=== PATIENT | female | born 1955 ===

== ENCOUNTER 2016-08-23 10:05 | Day surgery (SDC) | payer OTHER ==
[2016-08-23 10:33] VITALS: BMI 28.3
[2016-08-23] MEDS ORDERED: Lactated Ringer's 500 ML IV ONE (10:46)
--- NOTE | 2016-08-23 10:52 | CP.SDSHP ---
Same Day Surgery H & P - History Proposed Procedure: EGD/colonoscopy Pre-Op Diagnosis: dyspepsia. screening for colon cancer - Previous Medical/Surgical History Comments: hyperparathyroidism - Allergies Allergies: Allergies No Known Allergies Allergy (Verified 10/31/15 12:14) - Current Medications Current Medications: see med list - Physical Exam General Appearance: NAD Vital Signs: Vital Signs 08/23/16 10:34 Temperature 98.5 F Pulse Rate 62 Respiratory 19 Rate Blood Pressure 123/82 O2 Sat by Pulse 97 Oximetry Mental Status: Alert & Oriented x3 Heart: WNL Lungs: WNL GI: WNL - {Optional Preform as Required} Abdomen: WNL - Impression Impression: 61 year old female with h/o hyperparathyroidism here for evaluation of dyspepsia and screening for colon cancer Pt. Evaluated Today:Candidate for Anesthesia & Procedure: Yes - Date & Time Date: 08/23/16 Time: 10:51 Short Stay Discharge - Short Stay Discharge Admitting Diagnosis/Reason for Visit: DYSPEPSIA / SCREENING FOR MAL BESS COLON Disposition: HOME/ ROUTINE
[2016-08-23] MEDS ORDERED: Propofol 10 mg/ml Inj (20 ML) ONE (10:58)
[2016-08-23 11:52] VITALS: TEMP 97.5
[2016-08-23 11:57] VITALS: PULSE 58
[2016-08-23 12:11] VITALS: O2SAT 100
[2016-08-23 12:23] VITALS: BP 116/70; RESP 16
== END 2016-08-23 12:50 | disposition home or self-care (01) ==
LOC: C.ENDO 10:05
PROVIDERS: ATTEND Internal Medicine Gastroenterology
DX: K29.50 Unspecified chronic gastritis without bleeding (principal); K29.80 Duodenitis without bleeding; K44.9 Diaphragmatic hernia without obstruction or gangrene; B96.81 Helicobacter pylori [H. pylori] as the cause of diseases classified elsewhere; Z12.11 Encounter for screening for malignant neoplasm of colon; K57.30 Diverticulosis of large intestine without perforation or abscess without bleeding; D12.2 Benign neoplasm of ascending colon; K64.8 Other hemorrhoids
CPT/HCPCS: 43239; 45385; 88305; J2704; J7120

== ENCOUNTER 2017-04-12 21:43 | Emergency (ER) | payer OTHER ==
[2017-04-12 22:07] VITALS: RESP 20; TEMP 98.9
[2017-04-12] MEDS ORDERED: DiphenhydrAMINE 50 mg/ml Inj IVP STA (22:47)
[2017-04-12] MEDS ORDERED: DiphenhydrAMINE 50 mg/ml Inj ONE (23:05)
--- NOTE | 2017-04-12 23:10 | C.PDOC ---
History Of Present Illness 61 year old female presents to the ED for evaluation of an itchy rash which began 3 days ago. Patient states she recently began treatment for H. Pylori and her medications include Flagyl, Omeprazole, and Tetracycline. Patient also states she recently ate salmon, which she does not do often. She denies throat- swelling sensation, chest pain, shortness of breath, nausea, vomiting at this time. Time Seen by Provider: 04/12/17 22:21 Chief Complaint (Nursing): Allergic Reaction History Per: Patient History/Exam Limitations: no limitations Onset/Duration Of Symptoms: Days (3) Current Symptoms Are (Timing): Still Present Context: Food Possible Cause: Medication, Food Associated Symptoms: Skin Rash, Itching. denies: Dyspnea, Chest Pain Home/EMS Treatment: None Additional History Per: Patient Past Medical History Reviewed: Historical Data, Nursing Documentation, Vital Signs Vital Signs: Last Vital Signs Temp 98.9 F 04/12/17 22:03 Pulse 68 04/13/17 00:00 Resp 20 04/13/17 00:00 BP 141/76 04/13/17 00:00 Pulse Ox 97 04/13/17 00:00 - Medical History PMH: Gastritis Denies: Chronic Kidney Disease Surgical History: No Surg Hx Family History: States: Unknown Family Hx - Social History Hx Alcohol Use: No Hx Substance Use: No Review Of Systems ENT: Negative for: Throat Swelling Respiratory: Negative for: Shortness of Breath Gastrointestinal: Negative for: Nausea, Vomiting Skin: Positive for: Rash Physical Exam - Physical Exam Appears: Non-toxic, No Acute Distress Skin: Warm, Dry, Rash (diffuse, erythematous maculopapular ) Head: Atraumatic, Normacephalic Eye(s): bilateral: Normal Inspection Ear(s): Bilateral: Normal Nose: Normal, No Discharge Tongue: Normal Appearing, No Swelling Throat: Normal, No Erythema, No Exudate Neck: Supple Chest: Symmetrical, No Deformity, No Tenderness Cardiovascular: Rhythm Regular, No Murmur Respiratory: Normal Breath Sounds, No Rales, No Rhonchi, No Wheezing Extremity: Normal ROM Neurological/Psych: Oriented x3, Normal Speech, Normal Cognition Gait: Steady ED Course And Treatment O2 Sat by Pulse Oximetry: 96 (on RA) Pulse Ox Interpretation: Normal Medical Decision Making Medical Decision Making: Assessment: allergic reaction Progress: Patient is requesting IV medications. Benadryl IVP, Pepcid IVP, and Solu-Medrol IVP administered. On reassessment, patient is resting comfortably, showing no signs of respiratory distress and is stable for discharge. Patient will be given Rx for Prednisone and Benadryl. She is advised to follow up with her PMD within 1-2 days in regards to continuation of antibiotic treatments. Patient is advised to return to ED if symptoms persist or worsen. Disposition Counseled Patient/Family Regarding: Diagnosis, Need For Followup, Rx Given - Disposition Disposition: HOME/ ROUTINE Disposition Time: 23:30 Condition: IMPROVED Additional Instructions: follow up with your doctor tomorrow call in morning take medications as prescribed for allergic reaction return to hospital if symptoms worsens or progress Prescriptions: DiphenhydrAMINE [Benadryl] 25 - 50 mg PO QID PRN #20 cap PRN Reason: Itching / Pruritus predniSONE [predniSONE Tab] 50 mg PO DAILY #4 tab Instructions: Antibiotic Medication Allergy (ED) Forms: [facility] (Lao), General Discharge Instructions Print Language: LIBYAN - Clinical Impression Clinical Impression: Allergic urticaria - Scribe Statement The provider has reviewed the documentation as recorded by the Scribe (Jacqui Collins) Provider Attestation: All medical record entries made by the Scribe were at my direction and personally dictated by me. I have reviewed the chart and agree that the record accurately reflects my personal performance of the history, physical exam, medical decision making, and the department course for this patient. I have also personally directed, reviewed, and agree with the discharge instructions and disposition.
[2017-04-13 00:01] VITALS: BP 141/76; PULSE 68
[2017-04-14 18:58] VITALS: O2SAT 96
== END 2017-04-13 00:11 | disposition home or self-care (01) ==
LOC: C.ER 21:43
DX: L50.0 Allergic urticaria (principal)
CPT/HCPCS: 96374; 96375; 99284; J1200; J2930

== ENCOUNTER 2018-09-08 09:35 | Outpatient (CLI) | payer SELFPAY | END 2018-09-08 09:36 | disposition home or self-care (01) | LOC: C.LAB 09:35 | DX: E23.1 Drug-induced hypopituitarism (principal); E11.69 Type 2 diabetes mellitus with other specified complication ==